=== PATIENT | female | born 1940 | race Caucasian/White ===

== ENCOUNTER 2019-11-02 11:29 | Emergency (ER) | payer MEDICARE, OTHER ==
[~2019-11-02] VITALS: Ht 160 cm; Wt 77.7 kg
[2019-11-02 12:12] LABS: RED CELL DISTRIBUTION WIDTH 14.1 % (11.5-14.5)
[2019-11-02 12:13] LABS: BASOPHILS # (AUTO) 0.1 X10'3 (0-0.2); BASOPHILS % (AUTO) 0.9 % (0-1); EOSINOPHILS # (AUTO) 0.1 X10'3 (0-0.9); HEMATOCRIT 44.8 % (35.0-45.0); HEMOGLOBIN 15.2 g/dl (12.0-16.0); LYMPHOCYTES % (AUTO) 14.7 % (21-51); MEAN CORPUSCULAR HEMOGLOBIN 30.9 PG (27.0-31.0); MEAN CORPUSCULAR HGB CONC 33.8 g/dL (33.0-36.5); MEAN CORPUSCULAR VOLUME 91.3 FL (78-98); MEAN PLATELET VOLUME 8.9 FL (7.4-10.4); MONOCYTES # (AUTO) 0.5 X10'3 (0-0.9); MONOCYTES % (AUTO) 7.2 % (2-12); NEUTROPHILS # (AUTO) 5.3 X10'3 (1.8-7.7); NEUTROPHILS % (AUTO) 75.2 % (42-75); PLATELET COUNT 312 X10'3 (140-440); RED BLOOD COUNT 4.91 X10'6 (4.20-5.60)
[2019-11-02 12:22] LABS: PARTIAL THROMBOPLASTIN TIME 26 SECONDS (22-32)
[2019-11-02 12:23] LABS: ALANINE AMINOTRANSFERASE 29 U/L (12-78); ALBUMIN/GLOBULIN RATIO 1.2 (1.1-1.5); ALKALINE PHOSPHATASE 81 IU/L (46-116); ANION GAP 8 (8-16); ASPARTATE AMINO TRANSFERASE 23 U/L (10-37); BILIRUBIN,TOTAL 0.5 MG/DL (0.1-1.0); BLOOD UREA NITROGEN 18 MG/DL (7-18); BUN/CREATININE RATIO 12.3 (6.6-38.0); CALCIUM 9.3 MG/DL (8.5-10.1); CHLORIDE 105 MMOL/L (99-107); CREATININE 1.46 MG/DL (0.40-0.90); GLUCOSE 107 MG/DL (70-104); POTASSIUM 3.9 MMOL/L (3.5-5.1); SODIUM 143 MMOL/L (135-145); TOTAL CARBON DIOXIDE 29.8 MMOL/L (24-32); TOTAL PROTEIN 7.4 G/DL (6.4-8.2); eGFR 35 ML/MIN
[2019-11-02 12:26] LABS: TROPONIN I < 0.04 NG/ML (0.0-0.05)
[2019-11-02] MEDS ORDERED: normal saline 1000ml 1,000 ML IVB ONE (13:14)
[2019-11-02 13:20] VITALS: BP 141/92
== END 2019-11-02 13:49 | disposition home or self-care (01) ==
LOC: ER 11:30
DX: E86.0 Dehydration (principal); R42 Dizziness and giddiness; I10 Essential (primary) hypertension; R79.1 Abnormal coagulation profile; Z88.0 Allergy status to penicillin; Z88.2 Allergy status to sulfonamides
CPT/HCPCS: 36415; 70450; 71046; 80053; 84484; 85025; 85610; 85730; 93005; 99284

== ENCOUNTER 2021-02-16 12:54 | Emergency (ER) | payer MEDICARE, OTHER ==
[~2021-02-16] VITALS: Ht 160 cm; Wt 75.0 kg
[2021-02-16 15:18] VITALS: BP 146/57
== END 2021-02-16 15:20 | disposition home or self-care (01) ==
LOC: ER 12:55
DX: Z00.00 Encounter for general adult medical examination without abnormal findings (principal); R11.10 Vomiting, unspecified; I10 Essential (primary) hypertension; Z88.0 Allergy status to penicillin; Z88.2 Allergy status to sulfonamides
CPT/HCPCS: 93005; 99283

== ENCOUNTER 2022-09-09 15:41 | Emergency (ER) | payer MEDICARE, OTHER ==
[~2022-09-09] VITALS: Ht 160 cm; Wt 62.0 kg
[2022-09-09 16:39] VITALS: BP 104/74
== END 2022-09-09 17:48 | disposition home or self-care (01) ==
LOC: ER 15:43
DX: S09.8XXA Other specified injuries of head, initial encounter (principal); W18.39XA Other fall on same level, initial encounter; Y93.89 Activity, other specified; Y92.89 Other specified places as the place of occurrence of the external cause; Y99.8 Other external cause status; I10 Essential (primary) hypertension; Z88.0 Allergy status to penicillin; Z88.2 Allergy status to sulfonamides
CPT/HCPCS: 99281

== ENCOUNTER 2024-08-31 11:18 | Emergency (ER) | payer MEDICARE, OTHER ==
[~2024-08-31] VITALS: Ht 160 cm; Wt 67.0 kg
[2024-08-31 11:22] VITALS: BP 152/79; PULSE 77; RESP 16; O2SAT 96
[2024-08-31] MEDS ORDERED: PRED10TA23 PO (12:42)
[2024-08-31] MEDS ORDERED: DOXY-460 PO (12:42)
[2024-08-31] MEDS ORDERED: ALBU90AE INH (12:43)
[2024-08-31 14:17] VITALS: TEMP 97.9
== END 2024-08-31 14:20 | disposition home or self-care (01) ==
LOC: ER 11:18
DX: J22 Unspecified acute lower respiratory infection (principal); I10 Essential (primary) hypertension; Z88.2 Allergy status to sulfonamides; Z88.0 Allergy status to penicillin
CPT/HCPCS: 99283

== ENCOUNTER 2024-10-22 17:49 | Emergency (ER) | payer MEDICARE, OTHER ==
[~2024-10-22] VITALS: Ht 160 cm; Wt 67.1 kg
[~2024-10-22 17:49] MED LIST: ALBU90AE INH; LOSA25TA41 PO; SIMV-42 PO
[2024-10-22 18:37] VITALS: TEMP 98.3
[2024-10-22 22:26] LABS: BASOPHILS % (AUTO) 0.3 % (0-1); EOSINOPHILS # (AUTO) 0.1 X10'3 (0-0.9); HEMATOCRIT 38.5 % (35.0-45.0); HEMOGLOBIN 12.9 g/dl (12.0-16.0); LYMPHOCYTES # (AUTO) 0.5 X10'3 (1.1-4.8); LYMPHOCYTES % (AUTO) 4.8 % (21-51); MEAN CORPUSCULAR HEMOGLOBIN 30.7 PG (27.0-31.0); MEAN CORPUSCULAR HGB CONC 33.4 g/dL (33.0-36.5); MONOCYTES # (AUTO) 0.5 X10'3 (0-0.9); MONOCYTES % (AUTO) 4.9 % (2-12); NEUTROPHILS # (AUTO) 8.9 X10'3 (1.8-7.7); PLATELET COUNT 273 X10'3 (140-440); RED BLOOD COUNT 4.19 X10'6 (4.20-5.60); RED CELL DISTRIBUTION WIDTH 14.1 % (11.5-14.5)
[2024-10-22 22:42] LABS: ALANINE AMINOTRANSFERASE 13 U/L (12-78); ALBUMIN 3.3 G/DL (3.4-5.0); ALKALINE PHOSPHATASE 6 IU/L (46-116); ANION GAP 4 (8-16); ASPARTATE AMINO TRANSFERASE 13 U/L (10-37); BILIRUBIN,TOTAL 0.6 MG/DL (0.1-1.0); BLOOD UREA NITROGEN 18 MG/DL (7-18); BUN/CREATININE RATIO 15.9 (10.0-20.0); CALCIUM 9.7 MG/DL (8.5-10.1); CHLORIDE 103 MMOL/L (99-107); CREATININE 1.13 MG/DL (0.40-0.90); GLUCOSE 101 MG/DL (70-104); POTASSIUM 4.2 MMOL/L (3.5-5.1); SODIUM 138 MMOL/L (135-145); TOTAL CARBON DIOXIDE 31.1 MMOL/L (24-32); TOTAL PROTEIN 6.5 G/DL (6.4-8.2); eCRCL 31 ML/MIN; eGFR 46 ML/MIN
[2024-10-22 23:32] VITALS: BP 124/71; PULSE 75; RESP 16; O2SAT 98
== END 2024-10-22 23:51 | disposition home or self-care (01) ==
LOC: ER 17:50
DX: R19.7 Diarrhea, unspecified (principal); I10 Essential (primary) hypertension; Z88.0 Allergy status to penicillin; Z88.2 Allergy status to sulfonamides; Z79.899 Other long term (current) drug therapy
CPT/HCPCS: 36415; 80053; 84145; 85025; 99283

== ENCOUNTER 2024-12-04 14:50 | Emergency (ER) | payer MEDICARE, OTHER ==
[~2024-12-04] VITALS: Ht 160 cm; Wt 64.2 kg
[2024-12-04 17:40] VITALS: TEMP 98.3
[2024-12-04 17:57] LABS: BASOPHILS % (AUTO) 0.5 % (0-1); EOSINOPHILS # (AUTO) 0.2 X10'3 (0-0.9); EOSINOPHILS % (AUTO) 2.3 % (0-6); HEMATOCRIT 37.3 % (35.0-45.0); HEMOGLOBIN 12.5 g/dl (12.0-16.0); LYMPHOCYTES # (AUTO) 1.1 X10'3 (1.1-4.8); LYMPHOCYTES % (AUTO) 13.9 % (21-51); MEAN CORPUSCULAR HEMOGLOBIN 30.5 PG (27.0-31.0); MEAN CORPUSCULAR HGB CONC 33.5 g/dL (33.0-36.5); MEAN PLATELET VOLUME 8.7 FL (7.4-10.4); MONOCYTES # (AUTO) 0.6 X10'3 (0-0.9); MONOCYTES % (AUTO) 7.9 % (2-12); NEUTROPHILS # (AUTO) 5.9 X10'3 (1.8-7.7); NEUTROPHILS % (AUTO) 75.4 % (42-75); PLATELET COUNT 300 X10'3 (140-440); RED CELL DISTRIBUTION WIDTH 14.7 % (11.5-14.5); WHITE BLOOD COUNT 7.8 X10'3 (4.5-11.0)
[2024-12-04 18:09] LABS: ALBUMIN 3.8 G/DL (3.4-5.0); ANION GAP 4 (8-16); BLOOD UREA NITROGEN 15 MG/DL (7-18); BUN/CREATININE RATIO 13.5 (10.0-20.0); CALCIUM 9.8 MG/DL (8.5-10.1); CHLORIDE 103 MMOL/L (99-107); CREATININE 1.11 MG/DL (0.40-0.90); GLUCOSE 113 MG/DL (70-104); POTASSIUM 3.9 MMOL/L (3.5-5.1); PRO BRAIN NATRIURETIC PEPTIDE 547 PG/ML (0-450); SODIUM 139 MMOL/L (135-145); TOTAL CARBON DIOXIDE 32.4 MMOL/L (24-32); eCRCL 32 ML/MIN; eGFR 47 ML/MIN
[2024-12-04] MEDS ORDERED: CHOL500L3 (20:11)
[2024-12-04 20:15] VITALS: O2SAT 99
[2024-12-04 20:45] VITALS: PULSE 94; RESP 13
[2024-12-04 21:00] VITALS: BP 148/65
[2024-12-04] MEDS ORDERED: AZIT250T2 PO (21:23)
[2024-12-04] MEDS: dexamethasone 4mg tablet PO ONE (21:25)
[2024-12-04] MEDS: azithromycin 250mg tablet PO ONE (21:31)
== END 2024-12-04 21:36 | disposition home or self-care (01) ==
LOC: ER 14:50
DX: J18.9 Pneumonia, unspecified organism (principal); I10 Essential (primary) hypertension; Z88.0 Allergy status to penicillin; Z88.2 Allergy status to sulfonamides
CPT/HCPCS: 36415; 71045; 80048; 83605; 83880; 85025; 87040; 99285

== ENCOUNTER 2025-09-23 09:02 | Emergency (ER) | payer MEDICARE, OTHER ==
[~2025-09-23] VITALS: Ht 160 cm; Wt 69.7 kg
[~2025-09-23 09:02] MED LIST changes: +CHOL500L3
--- NOTE | 2025-09-23 09:57 | RADIOLOGY REPORT ---
DI CHEST,TWO VIEWS CLINICAL HISTORY: WHEEZING COMPARISON: DI CHEST,SINGLE VIEW on DOS: 12/04/24, DI CHEST,TWO VIEWS on DOS: 09/10/24, CHEST,TWO VIEWS on DOS: 11/02/19 TECHNIQUE: Frontal and lateral view of the chest was obtained FINDINGS: Lines and Tubes: None. Lungs: There are left basilar opacities. Pleura: There is a left pleural effusion. No pneumothorax. Cardiomediastinal contours: Unremarkable Bones: No acute osseous abnormality. IMPRESSION: 1. Left basilar opacities and left pleural effusion.
--- NOTE | 2025-09-23 10:16 | Physician Documentation ---
History of Present Illness ~ Chief Complaint: See Chief Complaint Stated Complaint: "HEARD LUNG SOUNDS" Time Seen by MD: 09:51 OK to notify your PCP?: Yes Primary Medical Doctor: dr benson Source: patient Mode of Arrival: POV Exam Limitations: no limitations HPI Pt presents to ED as she states she "heard lung sounds" started on Friday and persisted last night. She has a history of recurrent pneumonia each winter. Last year she was hospitalized with bilateral pneumonia. He has any fever, cough or shortness of breath. Patient does not have any unusual cough. She coughs up very occasionally and is dry. She has no nausea no vomiting no fever no chills no dyspnea on exertion. Medication Reconciliation Allergies: Coded Allergies: Penicillins (Unverified Allergy, Unknown, 09/23/25) Sulfa (Sulfonamide Antibiotics) (Unverified Allergy, Unknown, 09/23/25) Scheduled Azithromycin (Azithromycin), 1 TAB PO UD Losartan Potassium (Losartan Potassium), 1 TAB PO DAILY, (Reported) Simvastatin* (Zocor*), 1 TAB PO HS, (Reported) Scheduled PRN Albuterol Sulfate (Proair Respiclick), 2 PUFFS INH Q4HPRN PRN for shortness of breath Miscellaneous Medications Cholecalciferol (Vitamin D3) (Vitamin D3), (Reported) Past Medical History Past Medical History: Vertigo, Hypertension, Pneumonia Past Surgical History: noncontributory Alcohol Use: None Drug Use: none Lives with: Spouse Lives In: Home Review of Systems All Other Systems at this time: Reviewed and Negative ROS As stated above in the HPI, otherwise all systems are reviewed and negative. Physical Exam Vital Signs: RN Vital Signs have been reviewed: Yes, Temperature: 97.3, Source: Temporal, Heart Rate: 73, Respiratory Rate: 16, BP: 156/76, Pulse Oximetry: 99, Weight: 69.700 Oxygen Flow Rate: 0 Pulse Oximetry Reflects: adequate oxygenation Physical Exam General: Alert, no apparent distress. HEENT: PERRL, EOMI, no injection, moist mucous membranes. Neck: Full range of motion. Respiratory: Diminished breath sounds on left lower lobe. Clear breath sounds on right side Chest: No accessory muscle use. Cardiovascular: Regular rate and rhythm, no murmurs. Gastrointestinal: Soft, nontender, nondistended. Bowels sounds present. Extremities: Normal range of motion, no deformity. Neurologic: Oriented x4. Psychiatric: Normal mood and affect. Skin: Normal color, warm and dry. No edema, no ecchymosis. Progress Results/Orders Results/Orders Vital Signs 09/23/25 09/23/25 09/23/25 09/23/25 09:09 10:30 10:34 11:39 Temp 97.3 98.0 Pulse 73 65 65 Resp 16 16 16 16 B/P (MAP) 156/76 145/71 (95) 130/66 Pulse Ox 99 98 97 O2 Flow Rate 0 0 Laboratory Tests Test 09/23/25 10:28 White Blood Count 8.3 Red Blood Count 4.21 Hemoglobin 13.2 Hematocrit 39.3 Mean Corpuscular Volume 93.2 Mean Corpuscular Hemoglobin 31.3 H Mean Corpuscular Hemoglobin Concent 33.6 Red Cell Distribution Width 14.4 Platelet Count 315 Mean Platelet Volume 8.6 Neutrophils (%) (Auto) 79.7 H Lymphocytes (%) (Auto) 11.5 L Monocytes (%) (Auto) 7.3 Eosinophils (%) (Auto) 1.1 Basophils (%) (Auto) 0.4 Neutrophils # (Auto) 6.6 Lymphocytes # (Auto) 1.0 L Monocytes # (Auto) 0.6 Eosinophils # (Auto) 0.1 Basophils # (Auto) 0.0 CBC Comment Sodium Level 142 Potassium Level 4.4 Chloride Level 109 H Carbon Dioxide Level 29.6 Anion Gap 3 L Blood Urea Nitrogen 18 Creatinine 1.34 H Estimated GFR/1.73 m2 38 BUN/Creatinine Ratio 13.4 Glucose Level 121 H Calcium Level 9.5 Pro-B-Type Natriuretic Peptide 307 Albumin 3.9 Procalcitonin < 0.05 Chemistry Comments Medical Decision Making Additional information obtaine: old records Findings During the physical examination, the findings suggestive of acute [facility] condition such as JVD, tracheal deviation, acidotic breathing, noisy stridorous breath sounds, pulses paradoxus, muffled heart sounds, unequal breath sounds, abdominal rigidity and rebound tenderness, focal neurological deficits, cool clammy skin, severe hypotension, severe tachycardia or bradycardia are absent. Physical examination is unremarkable. Chest x-ray compared to the previous chest x-ray is unchanged. CBC and BMP are well within normal range. I do not really thing there is any signs of pneumonia in chest x-ray or clinically. However I will put her on azithromycin and discharged with aftercare instructions. DISCLAIMER Inadvertent spelling and grammatical errors,inadvertent humanities coordinator errors,syntax errors, grammatical errors, and spelling errors are likely due to EMR/dictation software use and do not reflect on the overall quality of patient care. Note that the electronic time recorded on this note does not necessarily reflect the actual time of the patient encounter. Heart Score: 4 Differential Dx:Considerations: Include: asthma, pneumonia, pneumonitis, upper resp. infection Departure Disposition: HOME / SELF CARE / HOMELESS Impression: Primary Impression: Acute bronchitis Condition: Stable Discharge Instructions: Acute Bronchitis, Adult, [id number] Additional Instructions: Thank you for coming to our Emergency Department today. Please ask your nurse or provider if you have questions about your care today and do not leave until all your questions have been answered. Please use any medications given as directed and follow-up with your doctor (or the doctor you were referred to) in the next 1-3 days. Your primary care doctor can help to coordinate outpatient specialty care and provide authorization for specialty referral as needed. If you do not have a primary care doctor [facility] You may also use motrin and tylenol as needed for fever and/or pain unless instructed otherwise by your provider or nurse. Indications for more urgent follow-up have been discussed, but you may return to the Emergency Department at ANY time for any worrisome or worsening symptoms. County Facilities: [facility] Facilities: [facility]: [facility] [place] Address:[address] [place] [address] [facility]: [place] Address:[address] [place] [id number] [facility]: [facility] Address:[facility] [place] [address] [facility] Address:[address] [place], [place] [id number] Registration Billing Pharmacy Referrals [facility] Address:[address] [place] [address] Referrals: NO PRIMARY CARE PROVIDER (PCP) Prescriptions Azithromycin (Azithromycin) 250 Mg Tablet 1 TAB PO UD for 5 Days, #6 TAB 2 the first day followed by 1 for days 2-5 Prov: ADRIEL TERRY MD 09/23/25 Additional Comment Medical Screen Exam This patient recieved a medical screening examination. After reviewing the individual's medical complaints with presenting symptoms and performing an appropriate physical examination, it was determined that no immediate life- threatening emergency medical condition is present. This individual is also not a women having contractions. Signature Scribe Signature: x Attestation: JUDY Thao Sep 23, 2025 10:16 ADRIEL TERRY MD Sep 23, 2025 11:15
[2025-09-23 10:41] LABS: MEAN PLATELET VOLUME 8.6 FL (7.4-10.4); RED CELL DISTRIBUTION WIDTH 14.4 % (11.5-14.5)
[2025-09-23] MEDS ORDERED: AZIT250T83 PO (11:15)
[2025-09-23 11:25] LABS: CREATININE 1.34 MG/DL (0.40-0.90); PRO BRAIN NATRIURETIC PEPTIDE 307 PG/ML (0-450); TOTAL CARBON DIOXIDE 29.6 MMOL/L (24-32); eCRCL 26 ML/MIN; eGFR 38 ML/MIN
[2025-09-23 11:39] VITALS: BP 130/66; PULSE 65; RESP 16; TEMP 98; O2SAT 97
== END 2025-09-23 11:40 | disposition home or self-care (01) ==
LOC: ER 09:03
DX: J20.9 Acute bronchitis, unspecified (principal); I10 Essential (primary) hypertension; Z88.0 Allergy status to penicillin; Z88.2 Allergy status to sulfonamides; Z79.899 Other long term (current) drug therapy
CPT/HCPCS: 36415; 71046; 80048; 83880; 84145; 85025; 99284